=== PATIENT | female | born 1965 | race Two or more races ===

== ENCOUNTER 2018-11-10 11:11 | Emergency (ER) | payer OTHER ==
[~2018-11-10] VITALS: Ht 157.5 cm; Wt 74.8 kg
--- NOTE | 2018-11-10 11:11 | NUR ---
PT BIB SELF C/O EPIGASTRIC PAIN SINCE THIS AM UPON WAKING UP. N/V X LAST NIGHT, PT IS AAOX4, NOT IN RESPIRATORY DISTRESS, V/S STABLE, KEPT RESTED AND COMFORTABLE.
--- NOTE | 2018-11-10 11:35 | NUR ---
JR CORDERO AT BEDSIDE FOR EVAL.
[2018-11-10] MEDS ORDERED: ONDANSETRON HCL/PF 4 MG/2 ML VIAL ONE (11:45)
[2018-11-10] MEDS ORDERED: KETOROLAC TROMETHAMINE 15 MG/ML VIAL ONE (11:45)
[2018-11-10] MEDS ORDERED: MAG HYDROX/AL HYDROX/SIMETH 30 ML UDC ONE (11:45)
[2018-11-10] MEDS ORDERED: FAMOTIDINE/PF INJ 20 MG/2 ML VIAL IV ONE (11:45)
--- NOTE | 2018-11-10 11:50 | NUR ---
URINE SPECIMEN COLLECTED AND SENT TO LAB.
[2018-11-10 12:00] LABS: BASOPHILS % (AUTO) 0.5 % (0.0-2.0); HEMATOCRIT 40 % (33-45); HEMOGLOBIN 13.6 g/dL (11.5-14.8); LYMPHOCYTES # (AUTO) 2.2 /CMM (0.8-4.8); LYMPHOCYTES % (AUTO) 44.9 % (20.0-44.0); MEAN CORPUSCULAR HGB CONC 34 g/dl (31.0-36.0); MEAN CORPUSCULAR VOLUME 93 fL (82-100); MONOCYTES # (AUTO) 0.3 /CMM (0.1-1.30); NEUTROPHILS # (AUTO) 2.3 /CMM (1.8-8.9); NEUTROPHILS % (AUTO) 47.6 % (43.0-81.0); PLATELET COUNT (AUTO) 209 /CMM (150-450); RED BLOOD CELL COUNT(AUTO) 4.33 MIL/uL (4.0-5.2); WHITE BLOOD COUNT (AUTO) 4.9 K/uL (4.3-11.0)
[2018-11-10] MEDS: IV NS 0.9% 1,000 ML BAG IV ONE (12:03)
[2018-11-10] MEDS: FAMOTIDINE/PF INJ 20 MG/2 ML VIAL IV ONE (12:03)
[2018-11-10] MEDS: MAG HYDROX/AL HYDROX/SIMETH 30 ML UDC PO ONE (12:03)
[2018-11-10] MEDS: ONDANSETRON HCL/PF 4 MG/2 ML VIAL IV ONE (12:04)
[2018-11-10] MEDS: KETOROLAC TROMETHAMINE INJ 30 MG/ML VIAL IV ONE (12:04)
[2018-11-10 12:06] LABS: APPEARANCE,URINE Clear (CLEAR); BILIRUBIN,URINE Negative (NEGATIVE); BLOOD, URINE Negative Ery/uL (NEGATIVE); COLOR,URINE Yellow (YELLOW); KETONES,URINE Negative (NEGATIVE); LEUKOCYTE ESTERASE ,URINE Negative (NEGATIVE); NITRITE, URINE Negative (NEGATIVE); PH,URINE 7.5 (5.0-8.0); PROTEIN,URINE Negative (NEGATIVE); UGLUCOSE Negative (NEGATIVE); UROBILINOGEN,URINE 0.2 EU/dL (0.2)
--- NOTE | 2018-11-10 12:06 | NUR ---
PT LABS DRAWNED AND SENT TO LAB. AWAITING RESULTS.
[2018-11-10 12:08] LABS: CALCIUM, SERUM 9.3 mg/dL (8.5-10.1); CREATININE 0.8 mg/dL (0.6-1.3); POTASSIUM 4.1 mmol/L (3.5-5.1)
[2018-11-10 12:14] LABS: ALBUMIN 4.4 g/dL (3.4-5.0); BILIRUBIN,DIRECT 0.1 mg/dL (0.0-0.2); BILIRUBIN,TOTAL 0.4 mg/dL (0.2-1.0); TOTAL PROTEIN, SERUM 7.8 g/dL (6.4-8.2)
--- NOTE | 2018-11-10 13:43 | NUR ---
IV removed. Catheter intact and site benign. Pressure and 4x4 applied to site. No bleeding noted. Patient discharged to home in stable condition. Written and verbal after care instructions given. Patient verbalizes understanding of instruction.
[2018-11-10 13:44] VITALS: BP 132/77
== END 2018-11-10 13:45 | disposition home or self-care (01) ==
LOC: ER 11:14
DX: R10.13 Epigastric pain (principal); R11.10 Vomiting, unspecified
CPT/HCPCS: 36415; 80048; 80076; 81001; 83690; 84703; 96361; 96374; 96375; 85025; 99283; A4606; J1885; J2405; J3490; J7030; 81000-TC

== ENCOUNTER 2022-08-10 19:00 | Emergency (ER) | payer OTHER ==
[~2022-08-10] VITALS: Ht 162.6 cm; Wt 77.1 kg
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
--- NOTE | 2022-08-10 20:52 | NUR ---
URINE SPECIMEN SENT TO LAB
[2022-08-10] MEDS ORDERED: HYDROCODONE/APAP 5/325MG TABLET ONE (20:55)
[2022-08-10] MEDS ORDERED: ONDANSETRON 4 MG TAB.RAPDIS ONE (20:56)
--- NOTE | 2022-08-10 20:59 | NUR ---
BROUGHT TO CT DEPT
[2022-08-10] MEDS ORDERED: ONDANSETRON 4 MG TAB.RAPDIS SL ONE (21:00)
[2022-08-10] MEDS ORDERED: HYDROCODONE/APAP 5/325MG TABLET PO ONE (21:00)
[2022-08-10] MEDS ORDERED: HYDR-4209 PO (21:44)
[2022-08-10] MEDS ORDERED: ONDA4TAB11 PO (21:44)
--- NOTE | 2022-08-10 22:05 | NUR ---
Patient discharged to home in stable condition. Written and verbal after care instructions given. Patient verbalizes understanding of instruction.
[2022-08-10 22:06] VITALS: BP 158/86
== END 2022-08-10 22:07 | disposition short-term general hospital (02) ==
LOC: ER 19:00
DX: S06.9X9A Unspecified intracranial injury with loss of consciousness of unspecified duration, initial encounter (principal); Z79.899 Other long term (current) drug therapy; V49.9XXA Car occupant (driver) (passenger) injured in unspecified traffic accident, initial encounter; Y93.89 Activity, other specified; Y92.89 Other specified places as the place of occurrence of the external cause; Y99.8 Other external cause status
CPT/HCPCS: 99284; 70450; Q0162